=== PATIENT | female | born 2000 | race Native Hawaiian/Other Pacific Islander ===

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

== ENCOUNTER 2019-04-04 21:17 | Outpatient (CLI) | payer OTHER | END 2019-04-04 22:15 | disposition home or self-care (01) | LOC: TRG 21:17 | PROVIDERS: ATTEND Obstetrics & Gynecology | DX: O62.8 Other abnormalities of forces of labor (principal); O42.92 Full-term premature rupture of membranes, unspecified as to length of time between rupture and onset of labor; O26.93 Pregnancy related conditions, unspecified, third trimester; R50.9 Fever, unspecified; Z3A.38 38 weeks gestation of pregnancy | CPT/HCPCS: 59025 ==

== ENCOUNTER 2019-04-07 12:02 | Outpatient (CLI) | payer OTHER ==
[2019-04-07 12:24] VITALS: BP 114/63
== END 2019-04-07 12:55 | disposition home or self-care (01) ==
LOC: TRG 12:02
PROVIDERS: ATTEND Obstetrics & Gynecology
DX: O47.1 False labor at or after 37 completed weeks of gestation (principal); Z3A.38 38 weeks gestation of pregnancy
CPT/HCPCS: 59025

== ENCOUNTER 2019-04-10 10:30 | Outpatient (CLI) | payer OTHER ==
[2019-04-10 12:35] VITALS: BP 118/86
[2019-04-10] MEDS ORDERED: VISTARIL ONE (13:06)
[2019-04-10] MEDS ORDERED: VISTARIL PO ONE (14:00)
== END 2019-04-10 13:10 | disposition home or self-care (01) ==
LOC: TRG 10:30
PROVIDERS: ATTEND Obstetrics & Gynecology
DX: O60.03 Preterm labor without delivery, third trimester (principal); Z3A.38 38 weeks gestation of pregnancy
CPT/HCPCS: Q0177

== ENCOUNTER 2019-04-10 20:20 | Inpatient (IN) | payer OTHER ==
[2019-04-10] MEDS ORDERED: LACTATED RINGERS 1,000 ML ONE (20:54)
--- NOTE | 2019-04-10 20:55 | History and Physical Report ---
History of Present Illness Date of examination: 04/10/19 (pt presents to Triage with SROM clear fluid) History of present illness: EDC Confirmation: 04/19/2019 Gestational Age: 9 weeks Past History : 1 Term Births: 0 Premature Births: 0 Living Children: 0 Para: 0 Mult. Births: 0 Prev : 0 Prev. attempt? 0 Aborta: 0 Elect. Ab: 0 Spont. Ab: 0 Ectopics: 0 Past Medical History: Negative Past Medical History Past Surgical History: negative Past Medical History Anesthesia Complications: negative Anemia: negative Autoimmune Disorder: negative Bleeding Disorder: negative Blood Transfusions: negative Breast Disease: negative Diabetes: negative Heart Disease: negative Hypertension: negative Hepatitis/Liver Disease: negative Kidney Disease/UTI: negative Neurologic/Epilepsy/Migraines: negative Phlebitis/Varicosities: negative Psychiatric: negative Pulmonary Disease/Asthma: negative Thyroid Disease: negative Hospitalizations: negative Surgery (Non-diesel service apprentice): negative Family Hx: Aunt/Uncle - DM no known family hx cancer Social Hx: Single 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 of genital herpes: no Partner hx. of genital herpes: no Rash, Viral, or Febrile illness since last LMP? no Varicella/Chicken Pox Status: Previous Disease Genetic History Congenital Heart Defect: Mom: no Dad: no Iggy Disease: Mom: no Dad: no Thalassemia Mom: no Dad: no Neural Tube Defect Mom: no Dad: no Down's Syndrome Mom: no Dad: yes Comments: FOC's uncle Luis-Sachs Mom: no Dad: no Sickle Cell Disease/Trait Mom: no Dad: no Hemophilia Mom: no Dad: no Muscular Dystrophy Mom: no Dad: no Cystic Fibrosis Mom: no Dad: no [place] Chorea Mom: no Dad: no Mental Retardation Mom: no Dad: no Fragile X Mom: no Dad: no Other Genetic/Chromosomal Disorder Mom: no Dad: no Child w/other defect Mom: no Dad: no Enviromental Exposures Xray Exposure: no Medication, drug, or alcohol use since LMP: no Chemical/Other Exposure: no Exposure to Cat Liter: no Hx of Parvovirus (Fifth Disease): no Occupational Exposure to Children: none Current Allergies (reviewed today): No known allergies Past History - Obstetrical History Expected Date of Delivery: 04/19/19 Actual Gestation: 38 Week(s) 6 Day(s) : 1 Para: 0 Hx # Term Pregnancies: 0 Number of Pregnancies: 0 Spontaneous Abortions: 0 Induced : 0 Number of Living Children: 0 Medications and Allergies Allergies Allergy/AdvReac Type Severity Reaction Status Date / Time No Known Allergies Allergy Verified 04/10/19 20:37 Home Medications Medication Instructions Recorded Confirmed Last Taken Type Multivitamin Tablet 1 tab PO 04/10/19 04/10/19 History 0800 Active Meds: Active Medications Diagnostic Test (Pha) (Nitratest Paper) 1 each MC ONCE ONE Stop: 04/10/19 21:01 - Vital Signs Vital signs: Vital Signs Pulse BP 118 H 118/71 04/10/19 20:40 04/10/19 20:40 Temp Pulse Resp BP Pulse Ox 118 H 118/71 04/10/19 20:40 04/10/19 20:40 - Physical Exam Breasts: Positive: deferred Cardiovascular: Regular rate, Normal S1, Normal S2 Lungs: Positive: Normal air movement Abdomen: Positive: normal appearance, soft, normal bowel sounds. Negative: distention, tenderness Genitourinary (Female): Positive: normal external genitalia Vulva: both: normal Vagina: Positive: normal moisture. Negative: discharge Cervix: Negative: lesion, discharge Uterus: Positive: normal size, normal contour Adnexa: both: normal Anus/Rectum: Positive: normal perianal skin, heme negative. Negative: rectal mass, hemorrhoids Extremities: Positive: normal Deep Tendon Reflex Grade: Normal +2 - Obstetrical FHR: category 1 Uterine Contraction Monitor Mode: External Cervical Dilatation: 1 (clear fluid ) Cervical Effacement Percentage: 90 station: 0 Uterine Contraction Pattern: Regular Uterine Tone Measurement Phase: Resting Uterine Contraction Intensity: Moderate Results Result Diagrams: 04/10/19 21:10 All other labs normal. GBS Negative HBsAg Screen Negative Negative *1 RPR Non Reactive Non Reactive *2 Rubella Antibodies, IgG 1.21 index Immune >0.99 *3 Non-immune <0.90 Equivocal 0.90 - 0.99 Immune >0.99 ABO Grouping O *4 Rh Factor Negative *5 Please note: Prior records for this patient's ABO / Rh type are not available for additional verification. Antibody Screen Negative Negative *6 WBC 6.0 x10E3/uL 3.4-10.8 *7 RBC 4.29 x10E6/uL 3.77-5.28 *8 Hemoglobin 12.2 g/dL 11.1-15.9 *9 Hematocrit 36.5 % 34.0-46.6 *10 MCV 85 fL 79-97 *11 MCH 28.4 pg 26.6-33.0 *12 MCHC 33.4 g/dL 31.5-35.7 *13 RDW 14.3 % 12.3-15.4 *14 Platelets 173 x10E3/uL 150-379 *15 Neutrophils 73 % Not Estab. *16 Lymphs 19 % Not Estab. *17 Monocytes 7 % Not Estab. *18 Eos 1 % Not Estab. *19 Basos 0 % Not Estab. *20 ! Immature Cells <No Reported Value> *21 Neutrophils (Absolute) 4.4 x10E3/uL 1.4-7.0 *22 Lymphs (Absolute) 1.2 x10E3/uL 0.7-3.1 *23 Monocytes(Absolute) 0.4 x10E3/uL 0.1-0.9 *24 Eos (Absolute) 0.1 x10E3/uL 0.0-0.4 *25 Baso (Absolute) 0.0 x10E3/uL 0.0-0.2 *26 ! Immature Granulocytes 0 % Not Estab. *27 ! Immature Grans (Abs) 0.0 x10E3/uL 0.0-0.1 *28 ! NRBC <No Reported Value> *29 Hematology Comments: <No Reported Value> *30 Tests: (2) Panel 488285 ([id number]) HIV Screen 4th Generation wRfx Non Reactive Non Reactive *31 Tests: (3) HCV Ab w/Rflx to Verification ([id number]) ! HCV Ab <0.1 s/co ratio 0.0-0.9 *32 Tests: (4) Comment: ([id number]) ! Comment: SPRCS *33 Non reactive HCV antibody screen is consistent with no HCV infection, unless recent infection is suspected or other evidence exists to indicate HCV infection. Tests: (5) Urine Culture, Routine ([id number]) Urine Culture, Routine Final report *34 Tests: (6) Result ([id number]) ! Result 1 No growth *35 Assessment and Plan 18yo @ 38 weeks with SROM clear fluid GBS negative Orders in EMR
[2019-04-10] MEDS ORDERED: ZOFRAN IV PRN (20:56)
[2019-04-10] MEDS ORDERED: BRETHINE SUB-Q PRN (20:56)
[2019-04-10] MEDS ORDERED: SUBLIMAZE IV PRN (20:56)
[2019-04-10] MEDS ORDERED: NITRATEST PAPER MC ONE (21:00)
[2019-04-10] MEDS: LACTATED RINGERS 1,000 ML IV SCH (21:00)
[2019-04-10 21:22] LABS: Hematocrit 36.7 % (30.3-42.9); Hemoglobin 12.3 gm/dl (10.1-14.3); Mean Corpuscular HGB Conc 34 % (30-34); Mean Corpuscular Volume 82 fl (79-97); Platelet Count 205 K/mm3 (140-440); Red Blood Count 4.49 M/mm3 (3.65-5.03)
[2019-04-10] MEDS ORDERED: XYLOCAINE 2% INFILTRATI ONE (21:56)
[2019-04-10] MEDS ORDERED: PITOCin/NS 30 UNIT/500ML 30 UNITS/500 ML BAG IV SCH (22:00)
[2019-04-11] MEDS ORDERED: NACL 0.9% 1000 ML 1,000 ML ONE (00:27)
[2019-04-11] MEDS: LACTATED RINGERS 1,000 ML IV SCH (00:47)
[2019-04-11] MEDS ORDERED: NACL 0.9% 1000 ML 1,000 ML VG SCH (01:00)
--- NOTE | 2019-04-11 02:35 | Progress Note ---
Assessment and Plan pt on hands and knees Variables less freq Will continue close observation Re- eval one hour Subjective - Subjective Date of service: 04/11/19 (pt continues to labor unmedicated) Interval history: EDC Confirmation: 04/19/2019 Gestational Age: 9 weeks Past History : 1 Term Births: 0 Premature Births: 0 Living Children: 0 Para: 0 Mult. Births: 0 Prev : 0 Prev. attempt? 0 Aborta: 0 Elect. Ab: 0 Spont. Ab: 0 Ectopics: 0 Past Medical History: Negative Past Medical History Past Surgical History: negative Past Medical History Anesthesia Complications: negative Anemia: negative Autoimmune Disorder: negative Bleeding Disorder: negative Blood Transfusions: negative Breast Disease: negative Diabetes: negative Heart Disease: negative Hypertension: negative Hepatitis/Liver Disease: negative Kidney Disease/UTI: negative Neurologic/Epilepsy/Migraines: negative Phlebitis/Varicosities: negative Psychiatric: negative Pulmonary Disease/Asthma: negative Thyroid Disease: negative Hospitalizations: negative Surgery (Non-jack prizer): negative Family Hx: Aunt/Uncle - DM no known family hx cancer Social Hx: Single Student at [employer] no ETOH/Drugs/Smoking Infection History Hx of STD: none HIV Risk Eval: no Hepatitis B Risk Eval: low risk Personal hx. of genital herpes: no Partner hx. of genital herpes: no Rash, Viral, or Febrile illness since last LMP? no Varicella/Chicken Pox Status: Previous Disease Genetic History Congenital Heart Defect: Mom: no Dad: no Iggy Disease: Mom: no Dad: no Thalassemia Mom: no Dad: no Neural Tube Defect Mom: no Dad: no Down's Syndrome Mom: no Dad: yes Comments: FOC's uncle Luis-Sachs Mom: no Dad: no Sickle Cell Disease/Trait Mom: no Dad: no Hemophilia Mom: no Dad: no Muscular Dystrophy Mom: no Dad: no Cystic Fibrosis Mom: no Dad: no [place] Chorea Mom: no Dad: no Mental Retardation Mom: no Dad: no Fragile X Mom: no Dad: no Other Genetic/Chromosomal Disorder Mom: no Dad: no Child w/other defect Mom: no Dad: no Enviromental Exposures Xray Exposure: no Medication, drug, or alcohol use since LMP: no Chemical/Other Exposure: no Exposure to Cat Liter: no Hx of Parvovirus (Fifth Disease): no Occupational Exposure to Children: none Current Allergies (reviewed today): No known allergies Patient reports: movement normal, contractions Objective - Vital Signs Vital Signs: Vital Signs - 12hr 04/10/19 04/10/19 20:40 21:50 Pulse Rate 118 H 91 H Blood Pressure 118/71 109/62 - Exam Breasts: deferred Cardiovascular: Regular rate, Normal S2 Abdomen: Present: normal appearance, soft. Absent: distention, tenderness Uterus: Present: normal FHR: auscultation normal, category 2 (deep variables with good variability before and after) Uterine Contraction Monitor Mode: Internal Cervical Dilatation: 6 (increased bloody show) Cervical Effacement Percentage: 100 station: 0 Uterine Contraction Frequency (min): q2-3 Uterine Contraction Duration: 50 Uterine Contraction Pattern: Regular (no pitocin infusing) Uterine Contraction Intensity: Strong/Firm Extremities: normal Deep Tendon Reflex Grade: Normal +2 - Labs Labs: Abnormal Labs 04/10/19 21:10 MCH 27 L RDW 16.0 H Laboratory Results - last 24 hr 04/10/19 04/10/19 21:10 21:10 WBC 10.0 RBC 4.49 Hgb 12.3 Hct 36.7 MCV 82 MCH 27 L MCHC 34 RDW 16.0 H Plt Count 205 Blood Type O NEGATIVE Antibody Screen Positive Antibody Identification Anti-D (Passively Aquired)
[2019-04-11] MEDS: PITOCin/NS 20 UNIT/1000ML DRIP 20 UNITS/1,000 ML BAG IV SCH ×2 (04:08→05:38)
[2019-04-11] MEDS ORDERED: MILK OF MAGNESIA PO PRN (04:16)
[2019-04-11] MEDS ORDERED: TYLENOL PO PRN (04:16)
[2019-04-11] MEDS ORDERED: BENADRYL PO PRN (04:16)
[2019-04-11] MEDS ORDERED: LANSINOH TP PRN (04:16)
[2019-04-11] MEDS ORDERED: PHENERGAN PO PRN (04:16)
[2019-04-11] MEDS ORDERED: DULCOLAX PR PRN (04:16)
[2019-04-11] MEDS ORDERED: TUCKS PAD TP PRN (04:16)
--- NOTE | 2019-04-11 04:25 | Procedure Note ---
OB Delivery Note - Delivery Date of Delivery: 04/11/19 Zoning Administrator: ED NUNEZ Estimated blood loss: 300cc - Vaginal Delivery presentation: vertex Intrapartum events: PROM->1hr before delivery, mult.variable deceleratio Delivery induction: none Delivery monitor: internal FHT, internal uterine Route of delivery: Delivery placenta: spontaneous Delivery cord: 3 umbilical vessels Episiotomy: none Delivery laceration: none Anesthesia: none Delivery comments: Pt c/o urge to push, standing @ bedside. Moved to hands and knees, pushed very well to +2 station. Requested to turn to supine, family supporting legs. Pushed X 23min. live born male over intact perineum OA Baby to mom's abdomen skin to skin. Cord blood obtained Placenta and membrane delivered complete and intact, 3 vessel cord. Pitocin IVFs. 8/9, EBL 300, Wgt 7-9. Mom and baby remain LDR stable. - Infant A at 1 minute: 8 at 5 minutes: 9 Infant Gender: Male (wgt 7-9)
[2019-04-11] MEDS ORDERED: SODIUM CHLORIDE FLUSH SYRINGE 10 ML IV NR (05:00)
[2019-04-11] MEDS: IBUPROFEN PO SCH ×2 (05:34→17:38)
[2019-04-11 16:23] LABS: Hemoglobin 9.7 gm/dl (10.1-14.3)
[2019-04-11 16:32] LABS: Hematocrit 28.6 % (30.3-42.9)
[2019-04-12] MEDS: IBUPROFEN PO SCH ×2 (05:25→13:24)
[2019-04-12] MEDS ORDERED: M-M-R II VACCINE SUB-Q ONE (06:00)
[2019-04-12] MEDS ORDERED: BOOSTRIX IM ONE (06:00)
--- NOTE | 2019-04-12 06:05 | Discharge Summary ---
Providers - Providers Date of Admission: 04/10/19 21:15 Date of discharge: 04/12/19 (pt agrees with d/c; understand they can room-in if baby stays for alicia-lights) Attending physician: AKHIL REED Primary care physician: AKHIL REED Hospitalization Reason for admission: rupture of membranes, IUP at term Delivery: Episiotomy: none Laceration: none Incision: normal Other procedures: none complications: none Discharge diagnosis: IUP at term delivered [place] baby: male (decline circumcision) Hospital course: uncomplicated vaginal delivery pt OOB walking in room caring for NB VSS FF below umb Lochia small Perineum intact H&H 05/12 drop r/t blood loss from delivery No s/sx of anemia Doing well s/p vag delivery P: d/c today with instructions RTO 4 weeks PP care Condition at discharge: Good Disposition: DC-01 TO HOME OR SELFCARE - Discharge Diagnoses (1) Normal spontaneous vaginal delivery Status: Acute Comment: RTO 4 weeks PP care Plan - Provider Discharge Summary Activity: routine, no sex for 6 weeks, no heavy lifting 4 weeks, no strenuous exercise Diet: routine Instructions: routine Additional instructions: [] Smoking cessation referral if applicable(refer to patient education folder for contact #) [] Refer to [facility] Booklet Call your doctor immediately for: * Fever > 100.5 * Heavy vaginal bleeding ( >1 pad per hour) * Severe persistent headache * Shortness of breath * Reddened, hot, painful area to leg or breast * Drainage or odor from incision. * Keep incision clean and dry at all times and follow doctor's instructions regarding bathing/showering - Follow up plan Follow up: AKHIL REED MD [Primary Care Provider] - 05/14/19 (Congratulations! Please call [phone] to schedule your visit in 4 weeks. Take Motrin/ibuprofen for cramping/pain. Call with any concerns.)
[2019-04-12 09:10] VITALS: BP 102/69
== END 2019-04-12 13:35 | disposition home or self-care (01) | DRG 807 ==
LOC: TRG 20:20 → LD 21:15 → OB 04-11 06:30
PROVIDERS: ADMIT Obstetrics & Gynecology; ATTEND Obstetrics & Gynecology
PROC: 10E0XZZ Delivery of Products of Conception, External Approach (ICD-10-PCS; principal; 2019-04-11)
PROC: 3E0234Z Introduction of Serum, Toxoid and Vaccine into Muscle, Percutaneous Approach (ICD-10-PCS; 2019-04-12)
DX: O42.02 Full-term premature rupture of membranes, onset of labor within 24 hours of rupture (principal); Z37.0 Single live birth; O76 Abnormality in fetal heart rate and rhythm complicating labor and delivery; Z3A.38 38 weeks gestation of pregnancy; Z23 Encounter for immunization
CPT/HCPCS: 36415; 85014; 85018; 85027; 85461; 86592; 86850; 86870; 86900; 86901; 90707; G0378; J2590; J2790; J7030; J7120

== ENCOUNTER 2020-05-03 01:52 | Outpatient (CLI) | payer OTHER ==
[2020-05-03 02:16] VITALS: BP 109/82
[2020-05-03] MEDS ORDERED: HYDROcodone/ACETAMINOPHEN 10-325MG TAB PO PRN (02:24)
== END 2020-05-03 02:57 | disposition home or self-care (01) ==
LOC: TRG 01:52 → APU 02:07 → TRG 02:57
PROVIDERS: ATTEND Obstetrics & Gynecology
DX: O47.1 False labor at or after 37 completed weeks of gestation (principal); Z3A.37 37 weeks gestation of pregnancy
CPT/HCPCS: 59025

== ENCOUNTER 2020-05-13 00:25 | Observation (INO) | payer OTHER ==
[2020-05-13 01:27] VITALS: BP 116/73
== END 2020-05-13 03:00 | disposition home or self-care (01) ==
LOC: TRG 00:25 → APU 00:33 → LD 01:27 → TRG 01:27 → APU 02:47
PROVIDERS: ADMIT Obstetrics & Gynecology; ATTEND Obstetrics & Gynecology
DX: O62.9 Abnormality of forces of labor, unspecified (principal); Z3A.39 39 weeks gestation of pregnancy
CPT/HCPCS: 59025; G0378

== ENCOUNTER 2021-10-09 10:39 | Outpatient (CLI) | payer OTHER ==
[2021-10-09 11:04] VITALS: BP 108/63
--- NOTE | 2021-10-09 13:50 | Ultrasound Report ---
ULTRASOUND OBSTETRIC LIMITED INDICATION / CLINICAL INFORMATION: fall, abd pain. Clinical Gestational Age (GA) in weeks, days: 21 weeks 4 days TECHNIQUE: Transabdominal. COMPARISON: None available. FINDINGS: HEART RATE (beats per minute): 154 BPM PLACENTA: Posterior grade 1 and free of the cervical os. No evidence of abruption. DEDRA: Subjectively normal. Not measured. PRESENTATION: Cephalic. ADDITIONAL FINDINGS: None. IMPRESSION: 1. No significant sonographic abnormality. Scribed by: Jazmyne Aguiar RDMS, RVT, CHELSI Scribed: 10/09/2021 12:22 PM I have reviewed the images, agree with this report, and edited this report as needed. Signer Name: Derrick Abdul MD Signed: 10/09/2021 1:46 PM Workstation Name: [id number]
== END 2021-10-09 12:27 | disposition home or self-care (01) ==
LOC: TRG 10:39 → APU 10:40 → TRG 12:27
PROVIDERS: ATTEND Obstetrics & Gynecology
DX: O26.892 Other specified pregnancy related conditions, second trimester (principal); W19.XXXA Unspecified fall, initial encounter; Y93.89 Activity, other specified; Y92.89 Other specified places as the place of occurrence of the external cause; Y99.8 Other external cause status; Z3A.21 21 weeks gestation of pregnancy
CPT/HCPCS: 76815

== ENCOUNTER 2021-10-26 07:54 | Outpatient (CLI) | payer OTHER ==
[2021-10-26] MEDS ORDERED: LACTATED RINGERS 1,000 ML IV ONE (09:00)
[2021-10-26 09:55] LABS: Bacteria,Urine 3+ /HPF (Negative); Bilirubin,Urine NEG (Negative); Blood,Urine NEG (Negative); Color,Urine Yellow (Yellow); Mucus,Urine FEW /HPF; Protein,Urine <15 mg/dL mg/dL (Negative); Urobilinogen,Urine < 2.0 mg/dL (<2.0)
--- NOTE | 2021-10-26 10:10 | Ultrasound Report ---
ULTRASOUND OBSTETRIC LIMITED INDICATION / CLINICAL INFORMATION: follow up fall. TECHNIQUE: Transabdominal ultrasound imaging. COMPARISON: 10/09/2020 FINDINGS: HEART RATE (beats per minute): 148 AMNIOTIC FLUID INDEX (cm) = 19.3 PRESENTATION: Cephalic. ADDITIONAL FINDINGS: The placenta is posterior, grade 1. No evidence for abruption. IMPRESSION: No significant abnormality. Signer Name: Jamin Wynn Jr, MD Signed: 10/26/2021 10:05 AM Workstation Name: [id number]
[2021-10-26 10:29] LABS: Hematocrit 35.3 % (30.3-42.9); Hemoglobin 11.6 gm/dl (10.1-14.3); Mean Corpuscular HGB Conc 33 % (30-34); Mean Corpuscular Volume 85 fl (79-97); Platelet Count 180 K/mm3 (140-440); Red Blood Count 4.17 M/mm3 (3.65-5.03); Red Cell Distribution Width 13.6 % (13.2-15.2)
[2021-10-26 12:00] VITALS: BP 117/65
== END 2021-10-26 12:43 | disposition home or self-care (01) ==
LOC: TRG 07:54 → APU 07:55 → TRG 12:43
PROVIDERS: ATTEND Obstetrics & Gynecology
DX: O26.892 Other specified pregnancy related conditions, second trimester (principal); W01.198A Fall on same level from slipping, tripping and stumbling with subsequent striking against other object, initial encounter; Y93.89 Activity, other specified; Y92.89 Other specified places as the place of occurrence of the external cause; Z3A.25 25 weeks gestation of pregnancy
CPT/HCPCS: 36415; 59025; 76815; 81001; 85027; 87086; 96360; 96361; J7120

== ENCOUNTER 2022-01-15 07:05 | Outpatient (CLI) | payer OTHER ==
[2022-01-15 07:30] VITALS: BP 118/65
== END 2022-01-15 08:09 | disposition home or self-care (01) ==
LOC: TRG 07:05 → APU 07:06 → TRG 08:09
PROVIDERS: ATTEND Obstetrics & Gynecology
DX: O26.93 Pregnancy related conditions, unspecified, third trimester (principal); Z3A.37 37 weeks gestation of pregnancy; M54.50 Low back pain, unspecified
CPT/HCPCS: 59025